=== PATIENT | male | born 1965 | race Hispanic/Latino ===

== ENCOUNTER 2016-09-15 18:23 | Emergency (ER) | payer MEDICAID ==
[2016-09-15 18:43] VITALS: BP 153/96
[2016-09-15 19:43] LABS: Bilirubin,Urine NEG (Negative); Blood,Urine NEG (Negative); Ketones,Urine NEG (Negative); Leukocyte Esterase,Urine NEG (Negative); Mucus,Urine FEW /HPF; Nitrite,Urine NEG (Negative); Protein,Urine <15 mg/dL mg/dL (Negative); Urobilinogen,Urine < 2.0 mg/dL (<2.0); WBC,Urine < 1.0 /HPF (0.0-6.0)
--- NOTE | 2016-09-21 20:45 | ED Elopement Review ---
ED Pt Elopement review - Results review Lab results: Laboratory Tests 09/15/16 18:50 Urine Color Straw Urine Turbidity Clear Urine pH 7.0 Ur Specific [place] 1.006 Urine Protein <15 mg/dl Urine Glucose (UA) Neg Urine Ketones Neg Urine Blood Neg Urine Nitrite Neg Urine Bilirubin Neg Urine Urobilinogen < 2.0 Ur Leukocyte Esterase Neg Urine WBC (Auto) < 1.0 Urine RBC (Auto) 2.0 Urine Mucus Few - Call Back decision Pt Call Back Decision: No action required (negative urinalysis)
== END 2016-09-15 21:00 | disposition left against medical advice (07) ==
LOC: ED 18:23
DX: M54.5 Low back pain (principal); Z53.21 Procedure and treatment not carried out due to patient leaving prior to being seen by health care provider
CPT/HCPCS: 81001

== ENCOUNTER 2016-09-30 11:35 | Emergency (ER) | payer MEDICAID | END 2016-09-30 11:36 | disposition left against medical advice (07) | LOC: ED 11:35 | DX: N23 Unspecified renal colic (principal); Z53.21 Procedure and treatment not carried out due to patient leaving prior to being seen by health care provider ==

== ENCOUNTER 2017-07-29 12:39 | Emergency (ER) | payer MEDICAID | END 2017-07-29 13:32 | disposition left against medical advice (07) | LOC: ED 12:39 | DX: M79.645 Pain in left finger(s) (principal); Z53.21 Procedure and treatment not carried out due to patient leaving prior to being seen by health care provider ==

== ENCOUNTER 2017-10-29 10:43 | Emergency (ER) | payer MEDICAID ==
[2017-10-29 11:14] VITALS: BP 138/88
[2017-10-29] MEDS ORDERED: BOOSTRIX IM ONE (12:39)
[2017-10-29] MEDS ORDERED: MOTRIN PO ONE (12:39)
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
== END 2017-10-29 13:01 | disposition home or self-care (01) ==
LOC: ED 10:43
DX: S81.812A Laceration without foreign body, left lower leg, initial encounter (principal); F17.200 Nicotine dependence, unspecified, uncomplicated; W45.8XXA Other foreign body or object entering through skin, initial encounter; Y93.55 Activity, bike riding; Y92.89 Other specified places as the place of occurrence of the external cause; Y99.8 Other external cause status
CPT/HCPCS: 90471; 90715; 99283

== ENCOUNTER 2018-12-01 17:22 | Emergency (ER) | payer MEDICAID ==
--- NOTE | 2018-12-01 17:29 | Emergency Department Report ---
Blank Doc - Documentation Documentation: This is a 52-year-old male that presents with bilatearl feet pain with foreign body sensation to left foot. Denies any injuries., This initial assessment/diagnostic orders/clinical plan/treatment(s) is/are subject to change based on patient's health status, clinical progression and re- assessment by fellow clinical providers in the ED. Further treatment and workup at subsequent clinical providers discretion. Patient/guardians urged not to elope from the ED as their condition may be serious if not clinically assessed and managed. Initial orders include: 1- Patient sent to [facility] for further evaluation and treatment 2- xray
[2018-12-01 17:30] VITALS: BP 145/89
--- NOTE | 2018-12-01 18:37 | XRay Report ---
XR foot 3+V LT INDICATION / CLINICAL INFORMATION: pain to foot with foreign body sensation. COMPARISON: None available. FINDINGS: BONES/JOINT(S): No acute fracture or subluxation. No significant degenerative changes. SOFT TISSUES: No soft tissue gas or radiopaque foreign bodies. ADDITIONAL FINDINGS: None. Signer Name: Ajith Wood MD Signed: 12/01/2018 6:33 PM Workstation Name: [id number]
[2018-12-01] MEDS ORDERED: DELTASONE PO ONE (19:43)
[2018-12-01] MEDS ORDERED: IBUPROFEN PO ONE (19:43)
--- NOTE | 2018-12-01 20:32 | Emergency Department Report ---
ED Extremity Problem HPI - General Chief complaint: Extremity Injury, Lower Stated complaint: BOTH FEET PAIN Time Seen by Provider: 12/01/18 17:27 Source: patient Mode of arrival: Ambulatory Limitations: No Limitations - History of Present Illness Initial comments: Patient is a 52-year-old white female who presents to ED with severe nontraumatic left plantar foot pain for the last 2 months worse in the last 1 week. Patient denies fall, traumatic injury, dizziness, nausea, vomiting, low back pain, and fever and chills. Patient states that he is on his feet most of the day walking around on that the patient is sharp and reassess if someone is pushing a sharp needle on the arch of his foot. Complaint: extremity pain (left foot pain) -: Sudden, month(s) (2) Location: left, lower extremity (foot) History of Same: No -: Yes arthralgia Severity scale (0 -10): 3 Quality: burning, stabbing, aching, sharp Consistency: constant Improves with: nothing Worsens with: weight bearing, walking, exertion, palpation Associated Symptoms: denies other symptoms, arthralgias. denies: chest pain, shortness of breath, fever, myalgias, rash - Related Data Previous Rx's Medication Instructions Recorded Last Taken Type DOXYCYCLINE Hyclate [Vibramycin 100 mg PO Q12HR #14 capsule 10/29/17 Unknown Rx CAP] Ibuprofen [Motrin] 600 mg PO Q8H PRN #20 tablet 10/29/17 Unknown Rx Cyclobenzaprine [Flexeril] 10 mg PO TID PRN #15 tablet 12/01/18 Unknown Rx Naproxen [Naprosyn] 500 mg PO Q12H PRN #20 tablet 12/01/18 Unknown Rx predniSONE [Deltasone] 60 mg PO QDAY #15 tab 12/01/18 Unknown Rx Allergies Allergy/AdvReac Type Severity Reaction Status Date / Time No Known Allergies Allergy Verified 12/01/18 17:22 ED Review of Systems ROS: Stated complaint: BOTH FEET PAIN Other details as noted in HPI Constitutional: denies: chills, fever Eyes: denies: eye pain, eye discharge, vision change ENT: denies: ear pain, throat pain Respiratory: denies: cough, shortness of breath, wheezing Cardiovascular: denies: chest pain, palpitations Endocrine: no symptoms reported Gastrointestinal: denies: abdominal pain, nausea, diarrhea Genitourinary: denies: urgency, dysuria Musculoskeletal: arthralgia (left plantar foot pain). denies: back pain, joint swelling Skin: denies: rash, lesions Neurological: denies: headache, weakness, paresthesias Psychiatric: denies: anxiety, depression Hematological/Lymphatic: denies: easy bleeding, easy bruising ED Past Medical Hx - Past Medical History Previous Medical History?: Yes Hx Psychiatric Treatment: Yes (bipolar) - Surgical History Past Surgical History?: No - Social History Smoking Status: Current Every Day Smoker Substance Use Type: Alcohol, Marijuana - Medications Home Medications: Home Medications Medication Instructions Recorded Confirmed Last Taken Type DOXYCYCLINE Hyclate [Vibramycin 100 mg PO Q12HR #14 capsule 10/29/17 Unknown Rx CAP] Ibuprofen [Motrin] 600 mg PO Q8H PRN #20 tablet 10/29/17 Unknown Rx Cyclobenzaprine [Flexeril] 10 mg PO TID PRN #15 tablet 12/01/18 Unknown Rx Naproxen [Naprosyn] 500 mg PO Q12H PRN #20 tablet 12/01/18 Unknown Rx predniSONE [Deltasone] 60 mg PO QDAY #15 tab 12/01/18 Unknown Rx ED Physical Exam - General Limitations: No Limitations General appearance: alert, in no apparent distress - Head Head exam: Present: atraumatic, normocephalic, normal inspection - Eye Eye exam: Present: normal appearance, PERRL, EOMI Pupils: Present: normal accommodation - ENT ENT exam: Present: normal exam, normal orophraynx, mucous membranes moist, TM's normal bilaterally, normal external ear exam - Neck Neck exam: Present: normal inspection, full ROM. Absent: tenderness, lymphadenopathy - Respiratory Respiratory exam: Present: normal lung sounds bilaterally. Absent: respiratory distress, wheezes, rales, rhonchi, chest wall tenderness, accessory muscle use, prolonged expiratory - Cardiovascular Cardiovascular Exam: Present: regular rate, normal rhythm, normal heart sounds. Absent: systolic murmur, diastolic murmur, rubs, gallop - GI/Abdominal GI/Abdominal exam: Present: soft, normal bowel sounds. Absent: tenderness, guarding, rebound, hyperactive bowel sounds, hypoactive bowel sounds, organomegaly, mass - Rectal Rectal exam: Present: deferred - Extremities Exam Extremities exam: Present: normal inspection, tenderness (palpable severe left plantar foot tenderness), normal capillary refill. Absent: pedal edema, joint swelling, calf tenderness - Back Exam Back exam: Present: normal inspection, full ROM. Absent: tenderness, CVA tenderness (R), CVA tenderness (L), muscle spasm, paraspinal tenderness - Neurological Exam Neurological exam: Present: alert, oriented X3, CN II-XII intact, normal gait, reflexes normal - Psychiatric Psychiatric exam: Present: normal affect, normal mood - Skin Skin exam: Present: warm, dry, intact, normal color. Absent: rash ED Course Vital Signs 12/01/18 17:27 Temperature 98.8 F Pulse Rate 83 Respiratory 16 Rate Blood Pressure 145/89 O2 Sat by Pulse 100 Oximetry - Reevaluation(s) Reevaluation #1: 12/01/18 20:31 This is a 52-year-old male who presented to the ED with nontraumatic left plantar foot pain. Patient is alert and oriented 3 and is not in distress. Vital signs are stable. Patient was treated for pain in the ED and left foot x- ray shows no acute fractures or subluxations or foreign bodies in the left plantar foot. Patient symptoms are likely due to acute plantar fasciitis. Patient was discharged home on anti-inflammatory pain medications and advised to follow-up with [facility] clinic for follow-up in 7-10 days for reevaluation. Patient was advised to return to the ED immediately if symptoms get worse. ED Medical Decision Making - Radiology Data Radiology results: report reviewed, image reviewed Left foot x-ray shows no acute fractures, subluxation or foreign bodies in the soft tissues of the left foot. - Medical Decision Making This is a 52-year-old male who presented to the ED with nontraumatic left plantar foot pain. Patient is alert and oriented 3 and is not in distress. Vital signs are stable. Patient was treated for pain in the ED and left foot x- ray shows no acute fractures or subluxations or foreign bodies in the left plantar foot. Patient symptoms are likely due to acute plantar fasciitis. Patient was discharged home on anti-inflammatory pain medications and advised to follow-up with [facility] clinic for follow-up in 7-10 days for reevaluation. Patient was advised to return to the ED immediately if symptoms get worse. - Differential Diagnosis left plantar fasciitis; Muscle strain of left foot; foot fracture Critical care attestation.: If time is entered above; I have spent that time in minutes in the direct care of this critically ill patient, excluding procedure time. ED Disposition Clinical Impression: Plantar fasciitis of left foot Muscle strain of left foot Qualifiers: Encounter type: initial encounter Qualified Code(s): S96.912A - Strain of unspecified muscle and tendon at ankle and foot level, left foot, initial encounter Disposition: TO HOME OR SELFCARE Is pt being admited?: No Does the pt Need Aspirin: No Condition: Stable Instructions: Muscle Strain (ED), Plantar Fasciitis (ED) Additional Instructions: Take medications with food, drink plenty of fluids and follow up with your primary care physician in 7-10 days for reevaluation. Return to the ED immediately if symptoms get worse. Prescriptions: predniSONE [Deltasone] 60 mg PO QDAY #15 tab Cyclobenzaprine [Flexeril] 10 mg PO TID PRN #15 tablet PRN Reason: Muscle Spasm Naproxen [Naprosyn] 500 mg PO Q12H PRN #20 tablet PRN Reason: Pain , Severe (7-10) Referrals: [facility] [Outside] - 3-5 Days Time of Disposition: 20:34 Print Language: SAMOAN
== END 2018-12-01 21:05 | disposition home or self-care (01) ==
LOC: ED 17:22
DX: S96.912A Strain of unspecified muscle and tendon at ankle and foot level, left foot, initial encounter (principal); M72.2 Plantar fascial fibromatosis; F31.9 Bipolar disorder, unspecified; F17.200 Nicotine dependence, unspecified, uncomplicated; F12.10 Cannabis abuse, uncomplicated; Z79.899 Other long term (current) drug therapy; X58.XXXA Exposure to other specified factors, initial encounter; Y93.89 Activity, other specified; Y92.89 Other specified places as the place of occurrence of the external cause; Y99.8 Other external cause status
CPT/HCPCS: 73630; 99283; J7512

== ENCOUNTER 2019-12-25 05:18 | Emergency (ER) | payer MEDICAID ==
[2019-12-25] MEDS ORDERED: NALOXONE 0.4 MG/1 ML INJ IV ONE (06:22)
[2019-12-25] MEDS ORDERED: SODIUM CHLORIDE 0.9% 1000 ML 1,000 ML IV ONE (06:22)
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
[2019-12-25 07:58] LABS: Basophils # (Auto) 0.1 K/mm3 (0.0-0.1); Basophils % (Auto) 1.1 % (0.0-1.8); Eosinophils # (Auto) 0.3 K/mm3 (0.0-0.4); Eosinophils % (Auto) 3.1 % (0.0-4.3); Hematocrit 47.6 % (35.5-45.6); Hemoglobin 16.2 gm/dl (11.8-15.2); Lymphocytes # (Auto) 1.7 K/mm3 (1.2-5.4); Lymphocytes % (Auto) 19.6 % (13.4-35.0); Mean Corpuscular HGB Conc 34 % (32-34); Mean Corpuscular Volume 89 fl (84-94); Monocytes # (Auto) 0.7 K/mm3 (0.0-0.8); Monocytes % (Auto) 7.4 % (0.0-7.3); Platelet Count 262 K/mm3 (140-440); Red Blood Count 5.34 M/mm3 (3.65-5.03); Red Cell Distribution Width 14.1 % (13.2-15.2)
--- NOTE | 2019-12-25 08:02 | XRay Report ---
CHEST 1 VIEW INDICATION: Altered mental status. COMPARISON: None FINDINGS: Support devices: None. Heart: Within normal limits. Lungs/Pleura: No acute air space or interstitial disease. Additional findings: None. IMPRESSION: No acute findings. Signer Name: Parish Trotter Jr, MD Signed: 12/25/2019 7:58 AM Workstation Name: [id number]
[2019-12-25 08:19] LABS: Alanine Aminotransferase 21 units/L (7-56); Albumin 4.3 g/dL (3.9-5); BUN/Creatinine Ratio 16; Blood Urea Nitrogen 16 mg/dL (9-20); Calcium 9.6 mg/dL (8.4-10.2); Hemolysis Index 12
[2019-12-25 08:53] VITALS: BP 95/45
== END 2019-12-25 09:00 | disposition left against medical advice (07) ==
LOC: ED 05:18
DX: R41.82 Altered mental status, unspecified (principal); F31.9 Bipolar disorder, unspecified; Z79.1 Long term (current) use of non-steroidal anti-inflammatories (NSAID); Z79.899 Other long term (current) drug therapy
CPT/HCPCS: 36415; 71045; 80053; 80320; 82140; 82550; 84443; 84484; 85025; 93005; G0480

== ENCOUNTER 2020-02-03 02:10 | Emergency (ER) | payer MEDICAID ==
[2020-02-03 04:06] VITALS: BP 157/102
== END 2020-02-03 06:17 | disposition left against medical advice (07) ==
LOC: ED 02:10
DX: M54.5 Low back pain (principal); Z53.21 Procedure and treatment not carried out due to patient leaving prior to being seen by health care provider

== ENCOUNTER 2020-04-20 09:49 | Emergency (ER) | payer MEDICAID | END 2020-04-20 10:09 | disposition left against medical advice (07) | LOC: ED 09:49 | DX: Z00.8 Encounter for other general examination (principal); Z53.21 Procedure and treatment not carried out due to patient leaving prior to being seen by health care provider ==

== ENCOUNTER 2020-07-27 11:35 | Emergency (ER) | payer MEDICAID ==
[2020-07-27 11:42] VITALS: BP 158/103
--- NOTE | 2020-07-27 11:52 | Emergency Department Report ---
ED Extremity Problem HPI - General Chief complaint: Extremity Injury, Lower Stated complaint: FOOT PAIN BILATERAL Time Seen by Provider: 07/27/20 11:50 Source: patient Mode of arrival: Ambulatory Limitations: No Limitations - History of Present Illness Initial comments: 54-year-old male who denies any significant past medical history presents to the ER today complaining of bilateral plantar foot pain for the past year. Patient states that has been having pain to the ball of his feet for the past year. Patient states that is a constant but waxing and waning pain. He states that it seems to be worse in the morning when he first wakes up, but he states that it has also gotten to the point where anytime he sits and rests and then stands up the pain is severe. He has been here few times for similar foot pain. He has had x-rays of his feet without any acute findings. He has been given referrals to ladle repairer but has not followed up. He states that they keep asking for his Medicaid number but he does not have a Medicaid card. He denies any injuries recently. He states that his job requires a lot of standing and walking. He reports no swelling, redness, bruising, numbness, tingling, weakness or any other symptoms at this time. he states that he has been taking Tylenol and Aleve without much relief of the pain. MD Complaint: joint paint -: year(s) - Related Data Previous Rx's Medication Instructions Recorded Last Taken Type Ketorolac [Toradol] 10 mg PO Q6H PRN #20 tablet 07/27/20 Unknown Rx methylPREDNISolone [Medrol 4MG 4 mg PO DAILY #1 tab.ds.pk 07/27/20 Unknown Rx DOSEPAK (21 tabs)] Allergies Allergy/AdvReac Type Severity Reaction Status Date / Time No Known Allergies Allergy Verified 12/01/18 17:22 ED Review of Systems ROS: Stated complaint: FOOT PAIN BILATERAL Other details as noted in HPI Comment: All other systems reviewed and negative Constitutional: denies: chills, fever Respiratory: denies: cough, shortness of breath, wheezing Cardiovascular: denies: chest pain, palpitations Gastrointestinal: denies: abdominal pain, nausea, vomiting, diarrhea, constipation, hematemesis, melena, hematochezia Genitourinary: denies: urgency, dysuria Musculoskeletal: arthralgia. denies: back pain, joint swelling Skin: denies: rash, lesions, change in color, change in hair/nails, pruritus Neurological: denies: headache, weakness, paresthesias Psychiatric: denies: anxiety, depression, auditory hallucinations, visual hallucinations, homicidal thoughts, suicidal thoughts Hematological/Lymphatic: denies: easy bleeding, easy bruising ED Past Medical Hx - Past Medical History Previous Medical History?: Yes Hx Psychiatric Treatment: Yes (bipolar) - Surgical History Past Surgical History?: No - Social History Smoking Status: Current Every Day Smoker - Medications Home Medications: Home Medications Medication Instructions Recorded Confirmed Last Taken Type Ketorolac [Toradol] 10 mg PO Q6H PRN #20 tablet 07/27/20 Unknown Rx methylPREDNISolone [Medrol 4MG 4 mg PO DAILY #1 tab.ds.pk 07/27/20 Unknown Rx DOSEPAK (21 tabs)] ED Physical Exam - General Limitations: No Limitations General appearance: alert, in no apparent distress - Head Head exam: Present: atraumatic, normocephalic, normal inspection - Respiratory Respiratory exam: Absent: normal lung sounds bilaterally - Cardiovascular Cardiovascular Exam: Present: regular rate - Extremities Exam Extremities exam: Present: full ROM, tenderness (Moderate tenderness to palpation mainly to the ball of both feet especially on the left side. Patient has callus formation to the plantar aspect of the left foot. No signs of inf ection. He has full range of motion of his feet and toes. Sensation over the feet, cap refill and pulses normal), normal capillary refill. Absent: pedal edema, joint swelling, calf tenderness - Back Exam Back exam: Present: normal inspection - Neurological Exam Neurological exam: Present: alert, oriented X3, CN II-XII intact, normal gait - Psychiatric Psychiatric exam: Present: normal affect, normal mood - Skin Skin exam: Present: intact ED Course Vital Signs 07/27/20 11:39 Temperature 97.4 F L Pulse Rate 77 Respiratory 18 Rate Blood Pressure 158/103 O2 Sat by Pulse 99 Oximetry ED Medical Decision Making - Medical Decision Making 1204: Patient complains of chronic plantar foot pain. He has been having this pain for about a year. Physical exam does not show any signs of cellulitis, septic joint, acute arterial occlusion, DVT or any emergent condition requiring work-up or admission at this time. Patient is well-appearing, does not appear to be in any acute distress, he is neurologically intact with a normal gait in the ER. Discussed with patient importance of following up with the ladle repairer who can further evaluate his foot pain. He will be given medication to help his pain. Patient will be given a list of ladle repairer for him to follow-up with. Patient stable at time of discharge. Critical care attestation.: If time is entered above; I have spent that time in minutes in the direct care of this critically ill patient, excluding procedure time. ED Disposition Clinical Impression: Chronic pain of both feet Disposition: DC- TO HOME OR SELFCARE Is pt being admited?: No Does the pt Need Aspirin: No Condition: Stable Instructions: Chronic Pain, Adult, Foot Pain Additional Instructions: Take the Medrol Dosepak and the Toradol as prescribed. It is very important that you follow-up with the client renewal specialist/ladle repairer for further evaluation of your foot pain. Prescriptions: methylPREDNISolone [Medrol 4MG DOSEPAK (21 tabs)] 4 mg PO DAILY #1 tab.ds.pk Ketorolac [Toradol] 10 mg PO Q6H PRN #20 tablet PRN Reason: Pain Referrals: HELENE CARLTON MD [Staff Physician] - 3-5 Days LOI YANEZ MD [Staff Physician] - 3-5 Days JUSTINA WATTS MD [Staff Physician] - 3-5 Days BENY DORMAN DPM [Staff Physician] - 3-5 Days Time of Disposition: 12:02
== END 2020-07-27 12:51 | disposition home or self-care (01) ==
LOC: ED 11:35
DX: M79.671 Pain in right foot (principal); M79.672 Pain in left foot; G89.29 Other chronic pain; F31.9 Bipolar disorder, unspecified; F17.200 Nicotine dependence, unspecified, uncomplicated; Z79.899 Other long term (current) drug therapy
CPT/HCPCS: 99281

== ENCOUNTER 2021-11-13 08:04 | Emergency (ER) | payer MEDICAID ==
[2021-11-13 08:24] VITALS: BP 151/93
--- NOTE | 2021-11-13 11:18 | Emergency Department Report ---
Blank Doc - Documentation Documentation: Patient just came to the front RN window and stated is having chest pains. Tirso brambila came in for bilateral leg swelling. 1- This is a initial triage assessment/medical screening only. Full assessment and work-up will be completed once the patient is in proper hospital gown, ED bed and in a private room setting. This initial assessment/diagnostic orders/clinical plan/ treatment(s) is/are subject to change based on pt's health status, clinical progression and re-assessment by fellow clinical providers in the ED. Further treatment and workup at subsequent clinical providers discretion. Patient/guardians urged not to elope from ED as their condition may be serious if not clinically assessed and managed. 2-cardiac workup The patient was evaluated in the emergency department for symptoms described in the history of present illness. He/she was evaluated in the context of the global COVID-19 pandemic, which necessitated consideration that the patient might be at risk for infection with the virus that causes COVID-19. Institutional protocols and algorithms that pertain to the evaluation of patients at risk for COVID-19 are in a state of rapid change based on information released by regulatory bodies including the CDC and federal and state organizations. These policies and algorithms were followed during the patient's care in the emergency department. Please note that these policies, procedures and recommendations changed on a rapid basis.
--- NOTE | 2021-11-14 14:07 | Electrocardiograph Report ---
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
== END 2021-11-13 12:00 | disposition left against medical advice (07) ==
LOC: ED 08:04
DX: M25.472 Effusion, left ankle (principal); M25.471 Effusion, right ankle; Z53.21 Procedure and treatment not carried out due to patient leaving prior to being seen by health care provider
CPT/HCPCS: 93005; 99281